=== PATIENT | female | born 1965 | race Caucasian/White ===

== ENCOUNTER 2016-11-24 13:29 | Emergency (ER) | payer MEDICAID ==
[2016-11-24 13:34] VITALS: BP 131/74; PULSE 91; RESP 18; TEMP 98.2; O2SAT 98
--- NOTE | 2016-11-24 13:44 | EDPHY ---
H & P Stated Complaint: Right shoulder pain for 5 years, worse now after driving across the country Time Seen by Provider: 11/24/16 13:37 HPI/ROS: CHIEF COMPLAINT: Chronic shoulder pain exacerbation HISTORY OF PRESENT ILLNESS: The patient is a 51 y/o female who complains of chronic right shoulder pain which was exacerbated after driving from [place] to [place]. She reports that five years ago she fell off of a skateboard and has had intermittent right shoulder pain since. At that time she had imaging taken, was told that there was a broken bone, but is unsure what bone was fractured. She did not receive follow up care for this fracture. Her mild pain has been located along her upper back, neck, and right shoulder. There is mild pain relief upon palpation of her neck and trapezius. Denies numbness, weakness, fever, recent injury, or other pertinent symptoms. Denies taking any medications for pain management. She did have a Reiki treatment today. REVIEW OF SYSTEMS: A ten point review of systems was performed and is negative with the exception of the items mentioned in the HPI. Past medical history: Anxiety Chronic intermittent right shoulder pain Past surgical history: Denies Social history: Recently moved to [place] Lives with her two children Non-smoker General Appearance: Alert. Vital signs reviewed. Blood pressure: 131/74 at triage. Eyes: Pupils equal and round, no conjunctival injection, no discharge. Anicteric. ENT, Mouth: Mucous membranes are moist, no oropharyngeal erythema or edema. Neck: Mild right cervical tenderness across her upper back without palpable muscle spasm. No lymphadenopathy, supple. Respiratory: Lungs are clear to auscultation; no wheezes, rales, or rhonchi. Cardiovascular: Regular rate and rhythm; no murmur, rub, or gallop. Gastrointestinal: Abdomen is soft and nontender, no masses or organomegaly, bowel sounds normal. Skin: Warm and dry, no rashes on exposed skin, normal color. Back: Nontender to palpation over the thoracolumbar spine. Extremities: Full active ROM of right shoulder. No weakness or give away with provocative testing. No visible deformity. Neurological: Alert and oriented. Moving upper extremities easily and equally. Strength is 5 over 5 bilaterally with testing of all major motor groups bilateral upper extremities. Sensation is intact to light touch over both upper extremities. Deep tendon reflexes are 2+ in the biceps and triceps bilaterally. Psychiatric: Normal affect. - Personal History LMP (Females 10-55): 1-7 Days Ago Current Tetanus Diphtheria and Acellular Pertussis (TDAP): Yes - Medical/Surgical History Hx Asthma: Yes Hx Chronic Respiratory Disease: No Hx Diabetes: No Hx Cardiac Disease: No Hx Renal Disease: No Hx Cirrhosis: No Hx Alcoholism: No Hx HIV/AIDS: No Hx Splenectomy or Spleen Trauma: No Other PMH: Denies - Social History Smoking Status: Never smoked Constitutional: Initial Vital Signs Temperature (C) 36.8 C 11/24/16 13:30 Heart Rate 91 11/24/16 13:30 Respiratory Rate 18 11/24/16 13:30 Blood Pressure 131/74 H 11/24/16 13:30 O2 Sat (%) 98 11/24/16 13:30 O2 Delivery Mode Room Air Allergies/Adverse Reactions: No Known Allergies Allergy (Unverified 11/24/16 13:34) Home Medications: Medication Instructions Recorded Lidocaine 5% [Lidoderm 5% Patch 1 - 2 ea TD DAILY PRN #10 patch 11/24/16 (*)] Symbicort 80-4.5 Mcg Inhaler 11/24/16 Valium 11/24/16 traMADol [Ultram 50 mg (*)] 50 mg PO Q4 #20 tab 11/24/16 Medical Decision Making - Diagnostics Imaging Results: Imaging Impressions Shoulder X-Ray 11/24/16 14:05 Impression: Possible calcific biceps tendinopathy. Imaging: Discussed imaging studies w/ pump operator Radiologist, I viewed and interpreted images myself ED Course/Re-evaluation: 51-year-old female with chronic right shoulder pain who presents with worsening of this pain after a cross-country automobile trip. She describes pain across her right upper trapezius. She had Reiki perform this morning with no relief. She has not taken any pain medications. No radicular signs or symptoms. No recent trauma. Shoulder x-ray reviewed by me. She was given ibuprofen 400 mg orally in the emergency department. Reassessed at 1500. No significant change. She is sitting up in the bed using her phone with both hands. Previously she had her right arm elevated above her head. She is discharged home with instructions to alternate ibuprofen and Tylenol. She is given a prescription for lidocaine patches and for tramadol. She requested a prescription for Percocet. She has been referred to Orthopedics and also to a primary care physician, as she is new to the area. As she does not have radicular signs or symptoms or evidence of a medical emergency, I do not recommend MRI scanning or further imaging today. Differential Diagnosis: I considered a differential diagnosis that includes but is not limited to cervical radiculopathy, muscle spasm, tendinitis, rotator cuff injury, and drug- seeking behavior. - Data Points Medications Given: Discontinued Medications Ibuprofen (Motrin) 600 mg PO EDNOW ONE Stop: 11/24/16 14:06 Last Admin: 11/24/16 14:09 Dose: 600 mg Lidocaine (Lidoderm 5%) 1 ea TD EDNOW ONE Stop: 11/25/16 15:06 Last Admin: 11/24/16 15:14 Dose: 1 ea Departure - Departure Disposition: Home, Routine, Self-Care Clinical Impression: Shoulder pain, right Qualifiers: Chronicity: chronic Qualified Code(s): M25.511 - Pain in right shoulder Condition: Good Instructions: Shoulder Pain (ED) Additional Instructions: 1. Adult Pain & Fever Control: We recommend Acetaminophen (Tylenol) and Ibuprofen (Motrin,Advil) for pain and fever control for the next 3-4 days. When fever is high or pain severe, both drugs can be used at the same time, but at different intervals. Please note the time differences. Your dose is: Acetaminophen 650mg every 4 to 6 hours Ibuprofen 400mg every 6-8 hours with food. Note: do not take Acetaminophen with Hydrocodone (Vicodin, Lortab) or Oycodone (Percocet). These medications also contain Acetaminophen. No more than 3000mg of Acetaminophen should be taken in 24 hours (for an adult). 2. Take Tramadol as prescribed for pain. 3. I recommend you use a Lidocaine patch for local relief on the area where you are experiencing pain. 4. Follow up with your primary care provider for unimproved symptoms. You have been referred to Dr. Faby Sheridan if you do not have a primary care provider. 5. Follow up with Dr. Nathaniel Barboza, orthopedic surgeon, for additional testing and symptom management. He may refer you to physical therapy. 6. Return to the ED if you experience numbness, weakness, fever, or other severe worsening of your symptoms. Referrals: NONE *PRIMARY CARE P,. [Primary Care Provider] - As per Instructions Kym Sheridan MD [[facility] Primary Care Provider] - As per Instructions Nathaniel Barboza MD [Medical Doctor] - As per Instructions Prescriptions: Lidocaine 5% [Lidoderm 5% Patch (*)] 1 - 2 ea TD DAILY PRN #10 patch PRN Reason: Pain, Breakthrough traMADol [Ultram 50 mg (*)] 50 mg PO Q4 #20 tab Report Scribed for: Natalia Lyon Report Scribed by: Qi Mariscal Date of Report: 11/24/16 Time of Report: 14:10 Physician Review and Approval Statement: 11/24/16 14:15 Portions of this note were transcribed by the medial scribe. I, Dr. Natalia Lyon, personally performed the history, physical exam, and medical decision- making; and confirmed the accuracy of the information in the transcribed note.
[2016-11-24] MEDS ORDERED: IBUPROFEN 600 MG TAB PO ONE (14:05)
[2016-11-24] MEDS ORDERED: LIDOCAINE 5% 1 EA PATCH TD ONE (15:07)
[2016-11-24] MEDS ORDERED: PATCH REMOVAL 1 EA PATCH TD SCH (21:00)
[2016-11-25] MEDS ORDERED: LIDOCAINE 5% 1 EA PATCH TD ONE (15:05)
== END 2016-11-24 15:21 | disposition home or self-care (01) ==
DX: M25.511 Pain in right shoulder (principal); J45.909 Unspecified asthma, uncomplicated

== ENCOUNTER 2017-11-30 16:48 | Emergency (ER) | payer MEDICAID ==
[2017-11-30] MEDS ORDERED: FLUCONAZOLE 150 MG TAB PO ONE (17:44)
--- NOTE | 2017-11-30 17:47 | EDPHY ---
H & P Stated Complaint: Dx'd w/ringworm on Friday;not any better Time Seen by Provider: 11/30/17 17:30 HPI/ROS: CHIEF COMPLAINT: Ringworm HISTORY OF PRESENT ILLNESS: The patient is a 52-year-old female whose cat has been suffering from ring warm and she started to develop a lesion in her neck on Friday. She was seen at an urgent care and started on ketoconazole cream. She has been using this on the neck which seems to be improving but she now has several other lesions on her legs and arms chest. They are all scaly with erythema surrounding. Itchy. No fever. She is requesting oral antifungal medications. Severity: Moderate Modifying factors: Medications REVIEW OF SYSTEMS: Constitutional: denies: chills, fever, recent illness, recent injury EENTM: denies: blurred vision, double vision, nose congestion Respiratory: denies: cough, shortness of breath Cardiac: denies: chest pain, irregular heart rate, lightheadedness, palpitations Gastrointestinal/Abdominal: denies: abdominal pain, diarrhea, nausea, vomiting, blood streaked stools Genitourinary: denies: dysuria, frequency, hematuria, pain Musculoskeletal: denies: joint pain, muscle pain Skin: See HPI Neurological: denies: headache, numbness, paresthesia, tingling, dizziness, weakness Hematologic/Lymphatic: denies: blood clots, easy bleeding, easy bruising Immunologic/allergic: denies: HIV/AIDS, transplant 10 systems reviewed and negative except as noted EXAM: GENERAL: Well-appearing, well-nourished and in no acute distress. HEAD: Atraumatic, normocephalic. EYES: Pupils equal round and reactive to light, extraocular movements intact, sclera anicteric, conjunctiva are normal. ENT: TMs normal, nares patent, oropharynx clear without exudates. Moist mucous membranes. NECK: Normal range of motion, supple without lymphadenopathy or JVD. LUNGS: Breath sounds clear to auscultation bilaterally and equal. No wheezes rales or rhonchi. HEART: Regular rate and rhythm without murmurs, rubs or gallops. ABDOMEN: Soft, nontender, normoactive bowel sounds. No guarding, no rebound. No masses appreciated. BACK: No CVA tenderness, no spinal tenderness, step-offs or deformities EXTREMITIES: Normal range of motion, no pitting or edema. No clubbing or cyanosis. NEUROLOGICAL: Cranial nerves II through XII grossly intact. Normal speech, normal gait. 5/5 strength, normal movement in all extremities, normal sensation , normal reflexes PSYCH: Normal mood, normal affect. SKIN: Patient has approximately 10 scaly lesions with scaly middle and erythematous circular barrier on her neck, chest and extremities. No obvious superinfection. Source: Patient Exam Limitations: No limitations - Personal History LMP (Females 10-55): Post Menopausal - Medical/Surgical History Hx Asthma: Yes Hx Chronic Respiratory Disease: No Hx Diabetes: No Hx Cardiac Disease: No Hx Renal Disease: No Hx Cirrhosis: No Hx Alcoholism: No Hx HIV/AIDS: No Hx Splenectomy or Spleen Trauma: No Other PMH: ADHD. depression - Family History Significant Family History: No pertinent family hx - Social History Smoking Status: Never smoked Alcohol Use: Sober Drug Use: None Allergies/Adverse Reactions: No Known Allergies Allergy (Verified 11/30/17 16:52) Home Medications: Medication Instructions Recorded Amphet Asp and D/Amphet [Adderall 10 mg PO 11/30/17 10 MG (*)] Escitalopram Oxalate [Lexapro] 10 mg PO 11/30/17 Fluconazole [Diflucan (*)] 150 mg PO ONCE #3 tab 11/30/17 Ketoconazole 2% [Nizoral 2% Cream 1 blu TP 11/30/17 (*)] [place] Carbonate [[place] 300 mg PO 11/30/17 Carbonate Tab 300 mg (*)] Medical Decision Making ED Course/Re-evaluation: Patient is requesting oral antifungals. I will start her on Diflucan once a week for couple of weeks. I also discussed possibly using steroids with the patient states that she is allergic the prednisone because it causes a lot of phlegm. I do not see an indication for antibiotics at this point. I recommended that she follow up with Dermatology in case this does not improve she may need steroids or antibiotics in addition to the antifungals. She understands and agrees with this plan. We discussed possibly eczema or psoriasis as the source but the patient states adamantly that this is not the problem. Differential Diagnosis: Partial list of the Differential diagnosis considered include but were not limited to; tenia corporis, bacterial super infection, eczema, psoriasis and although unlikely based on the history and physical exam, I also considered cellulitis, abscesses, burn. I discussed these differential diagnoses and the plan with the patient as well as the usual and expected course. The patient understands that the diagnosis is provisional and that in medicine we are not always correct and that further workup is often warranted. Usual and customary warnings were given. All of the patient's questions were answered. The patient was instructed to return to the emergency department should the symptoms at all worsen or return, otherwise to followup with the physician as we discussed. - Data Points Medications Given: Discontinued Medications Fluconazole (Diflucan) 150 mg PO EDNOW ONE Stop: 11/30/17 17:45 Last Admin: 11/30/17 18:09 Dose: 150 mg Departure - Departure Disposition: Home, Routine, Self-Care Clinical Impression: Tinea corporis Condition: Fair Instructions: Fluconazole (By mouth), Tinea Corporis (ED) Referrals: NONE *PRIMARY CARE P,. [Primary Care Provider] - As per Instructions Opal Clinton MD [Medical Doctor] - As per Instructions Prescriptions: Fluconazole [Diflucan (*)] 150 mg PO ONCE #3 tab
[2017-11-30] MEDS ORDERED: FLUCONAZOLE 150 MG TAB ONE (18:10)
== END 2017-11-30 18:18 | disposition home or self-care (01) ==
DX: B35.4 Tinea corporis (principal)

== ENCOUNTER 2017-12-03 18:02 | Emergency (ER) | payer MEDICAID | END 2017-12-03 21:10 | disposition left against medical advice (07) | DX: Z53.21 Procedure and treatment not carried out due to patient leaving prior to being seen by health care provider (principal) ==

== ENCOUNTER 2018-05-12 18:34 | Emergency (ER) | payer MEDICAID ==
[2018-05-12 18:40] VITALS: BP 119/73
--- NOTE | 2018-05-12 18:46 | EDPHY ---
H & P Stated Complaint: INTRACTABLE RASH TO STOMACH AREA SINCE THIS SUMMER Time Seen by Provider: 05/12/18 18:43 HPI/ROS: CHIEF COMPLAINT: Abdominal rash HISTORY OF PRESENT ILLNESS: The patient presents to the ED with intermittent rash she has been experiencing on her abdomen for the past several months. The patient has seen a primary care provider without an obvious diagnosis. The patient denies any new medications. She denies any history of hives or anaphylaxis. She denies any additional acute complaints. The patient does have [employer] insurance but has not yet seen a museum exhibit technician. REVIEW OF SYSTEMS: A comprehensive 10 point review of systems is otherwise negative aside from elements mentioned in the history of present illness. Source: Patient - Personal History LMP (Females 10-55): Post Menopausal Current Tetanus Diphtheria and Acellular Pertussis (TDAP): No - Medical/Surgical History Hx Asthma: Yes Hx Chronic Respiratory Disease: No Hx Diabetes: No Hx Cardiac Disease: No Hx Renal Disease: No Hx Cirrhosis: No Hx Alcoholism: No Hx HIV/AIDS: No Hx Splenectomy or Spleen Trauma: No Other PMH: ADHD. depression - Social History Smoking Status: Never smoked - Physical Exam Exam: General Appearance: Alert, no distress Eyes: Pupils equal and round no pallor or injection ENT, Mouth: Mucous membranes moist Respiratory: There are no retractions, lungs are clear to auscultation Cardiovascular: Regular rate and rhythm Gastrointestinal: Abdomen is soft and nontender, no masses, bowel sounds normal Neurological: 5/5 strength noted all 4 extremities Skin: Fine pruritic papular rash noted on abdominal wall and arms, questionable scabies. Musculoskeletal: Neck is supple nontender Extremities: symmetrical, full range of motion Constitutional: Initial Vital Signs Temperature (C) 36.7 C 05/12/18 18:37 Heart Rate 79 05/12/18 18:37 Respiratory Rate 18 05/12/18 18:37 Blood Pressure 119/73 05/12/18 18:37 O2 Sat (%) 94 05/12/18 18:37 O2 Delivery Mode Room Air Allergies/Adverse Reactions: prednisone Allergy (Verified 05/12/18 18:36) Home Medications: Medication Instructions Recorded Amphet Asp and D/Amphet [Adderall 10 mg PO 11/30/17 10 MG (*)] Escitalopram Oxalate [Lexapro] 10 mg PO 11/30/17 Ketoconazole 2% [Nizoral 2% Cream 1 blu TP 11/30/17 (*)] [place] Carbonate [[place] 300 mg PO 11/30/17 Carbonate Tab 300 mg (*)] Permethrin 5% [Elimite 5%] 1 tube TP ONCE #30 gm 05/12/18 Medical Decision Making ED Course/Re-evaluation: Patient will be treated with permethrin for possible scabies. She is advised to follow up with [facility] for any unimproved symptoms. She has no evidence of cellulitis, abscess or a drug reaction in the emergency department today. Departure - Departure Disposition: Home, Routine, Self-Care Clinical Impression: Scabies Condition: Good Instructions: Scabies (ED) Additional Instructions: 1. Apply permethrin ointment to your body in leave on for 8-14 hours. 2. Follow up with your [place] primary care provider and [facility] for any unimproved symptoms. Referrals: HEMAL BRADLEY [Other] - As per Instructions
== END 2018-05-12 19:13 | disposition home or self-care (01) ==
DX: B86 Scabies (principal)

== ENCOUNTER 2018-05-24 12:19 | Emergency (ER) | payer MEDICAID | END 2018-05-24 13:11 | disposition home or self-care (01) ==

== ENCOUNTER 2018-08-27 17:28 | Emergency (ER) | payer MEDICAID | END 2018-08-27 18:38 | disposition home or self-care (01) ==